=== PATIENT | female | born 1985 | race Asian ===

== ENCOUNTER 2024-08-12 09:51 | Outpatient (AMB) | payer OTHER, SELFPAY ==
--- NOTE | 2024-08-12 09:52 | A.OFFPC_ITS ---
Vital Signs 08/12/24 09:53 Height 5 ft 3.25 in Weight 147 lb 8 oz BMI 25.9 BP 100/70 Blood Pressure Location Lt brachial Position Sitting Pulse 90 Pulse Source Pulse Oximeter Pulse Oximetry (%) 99 Oxygen Delivery Method Room Air Intake Visit Reasons: establish care Head [place] Required: No Accompanied by: Self / Same As Patient Allergies fluoroquinolones Allergy (Severe, Uncoded 08/12/24 10:18) swelling Medication List - Last Reconciled 08/12/24 by Roula Vieira PA-C [multivitamin PO] [Vitamin B12 PO] Tobacco use date assessed: 08/12/24 Dental Screening Dental Screen Date: 08/12/24 Did you have a dental visit in the last 12 months?: No Did you have a dental problem in the last 6 months where you did not have access to dental care?: No Was dental information given to patient?: No HPI establish care HPI Details [age] year old female coming to the office for the 1st time. Patient tells us today she has not been seen in many years. She has previous pregnancies and has had recent pap smear but is likely due for one. She has never completed mammogram. She tells us she has very heavy and painful menses in the first few days of her cycle and has a history of fibroid that was removed. Her menses will typically last 7-10 days and are very regular other than the heavy bleeding. Along with her menses she will occasionally get migraines with her period that are often triggered by dietary changes or lack of sleep. Migraines are typically once per month and accompanied by nausea and vomiting. [facility] Medical History (Updated 08/12/24 @ 10:34 by Roula Vieira PA-C) Uterine fibroid Surgical History (Updated 08/12/24 @ 10:28 by Roula Vieira PA-C) H/O laparoscopy Previous section Family History Other Hypertension Social History Housing: Apartment Patient Tobacco Use Status: Never used Tobacco e-Cigarette/Vaping Use: Never Used Second Hand Smoke Exposure: No service: No Current occupational status: employed Current occupational exposures/hazards: No Cognitive needs: No Hearing needs: No Vision needs: No Female Reproductive History Menstrual control method: none Total pregnancies: 2 Full term: 2 History of abnormal pap smear: No History of abnormal mammogram: No Questionnaire PHQ-9 Over the last 2 weeks, how often have you been bothered by any of the following problems? 1. Little interest or pleasure in doing things: not at all 2. Feeling down, depressed, or hopeless: not at all 3. Trouble falling or staying asleep, or sleeping too much: not at all 4. Feeling tired or having little energy: not at all 5. Poor appetite or overeating: not at all 6. Feeling bad about yourself - or that you are a failure or have let yourself or your family down: not at all 7. Trouble concentrating on things, such as reading the newspaper or watching television: not at all 8. Moving or speaking so slowly that other people could have noticed. Or the opposite - being so fidgety or restless that you have been moving around a lot more than usual: not at all 9. Thoughts that you would be better off or of hurting yourself in some way: not at all Total score: 0 Depression Screening Interpretation: Negative Depression Screening Done: Yes 15563 - PHQ-9 Billing: Yes Source: Developed by Drs. Sukhwinder Harris, Crystal Yeh, Clayton Bustos and colleagues, with an educational cindy from [employer]. Thrive Questionnaire Date Thrive assessed: 08/12/24 I am a: Patient What is your living situation today?: I have a steady place to live Within the past 12 months, did the food you bought not last and you didn't have the money to get more?: I choose not to answer this question Within the past 12 months, did you worry whether your food would run out before you got money to buy more?: Never true Do you have trouble paying for medicines?: No Do you have trouble getting transportation to medical appointments?: No Do you have trouble paying your heating and electricity bill?: No Do you have trouble taking care of your child, family member or friend?: No Do you have trouble with day-to-day activities such as bathing, preparing meals, shopping, managing finances, etc.?: No Are you currently unemployed and looking for a job?: No Are you interested in more education?: No Please select the resources that you would like help with: Utilities Currently or been in a relationship where the following occur: No concerns reported THRIVE Score: 0 AUDIT C Alcohol Use Questionnaire (AUDIT-C) 1. How often do you have a drink containing alcohol?: Monthly or less 2. How many drinks containing alcohol do you have on a typical day when you are drinking?: 1 or 2 3. How often do you have six or more drinks on one occasion?: Never Total Score: 1 SUNNY-7 AMB Questionnaire SUNNY-7 Date SUNNY - 7 assessed: 08/12/24 Feeling nervous, anxious, or on edge: 1 = Several days Not being able to stop or control worryin = Not at all Worrying too much about different things: 0 = Not at all Trouble relaxin = Not at all Being so restless that it is hard to sit still: 0 = Not at all Becoming easily annoyed or irritable: 1 = Several days Feeling afraid as if something awful might happen: 0 = Not at all Total SUNNY-7 score (0-4 normal; 5-9 mild; 10-14 moderate; 15-21 severe): 2 Source: Developed by Drs. Sukhwinder Harris, Crystal Yeh, Clayton Bustos and colleagues, with an educational cindy from [employer]. SUNNY-7 Assessment Billing SUNNY-7 Assessment Tool: SUNNY-7 Assessment 31228 Review of Systems Const Denies body aches, Denies chills, Denies fever(s), Reports headache(s) and Denies poor appetite Eyes Reports no additional complaints ENT Denies dizziness and Reports headache(s) Card Denies chest pain, Denies syncope, Denies edema, Denies irregular heart rhythm, Denies lightheadedness and Denies dyspnea Resp Denies cough and Denies dyspnea GI Denies abdominal pain, Denies constipation, Denies diarrhea, Reports nausea (w/ menses) and Reports vomiting (w/ menses) Details: Heavy, painful menses Musc Reports no additional complaints and Denies abnormal gait Skin/Breast Reports system reviewed and no additional complaints, except as documented Neuro Denies abnormal gait, Denies dizziness, Denies syncope and Reports headache(s) Psych Reports no additional complaints Physical exam (Primary Care) Vital Signs: Last Vital Signs Pulse 90 08/12/24 09:53 BP 100/70 08/12/24 09:53 Pulse Ox 99 08/12/24 09:53 Oxygen Delivery Method Room Air 08/12/24 09:53 BMI result Body Mass Index 25.9 Tobacco/Smoking Status: Tobacco use Status Tobacco use date assessed 08/12/24 08/12/24 09:58 Patient Tobacco Use Status Never used Tobacco 08/12/24 09:58 e-Cigarette/Vaping Use Never Used 08/12/24 09:58 PHQ-9: PHQ-9 Score PHQ-9: Total score 0 08/12/24 10:22 Depression Screening Interpretation: Negative Thrive Assessment: Date of Thrive Assessment Date Thrive assessed 08/12/24 08/12/24 09:58 Currently or been in a relationship where the following occur: No concerns reported Const General: cooperative, healthy appearing, comfortable and no acute distress Orientation/consciousness: patient oriented x3 HENMT Head: Yes normocephalic Ears: hearing grossly normal bilaterally General nose exam: Normal external nose present Eyes General: appearance normal, both eyes and all related structures Conjunctivae: conjunctivae normal Neck Neck: Yes full ROM and Yes no lymphadenopathy Resp Effort & Inspection: normal respiratory effort Auscultation: clear to auscultation bilaterally, no crackles, no rales, no rhonchi and no wheezes Cardio Rate: regular rate Rhythm: regular rhythm Skin General skin exam: no rashes or lesions noted Neuro General: patient oriented x3 Gait exam (Neuro): Normal gait present Extrem General: Yes normal to inspection, Yes full ROM and No edema Psych Affect: normal affect Attitude: cooperative Insight: Good insight present (Psych) Judgement: Good judgement present (Psych) Coding Level of Care Code New Pt Level 4 (37337) Diagnoses Hypercholesterolemia E78.00 Cervical cancer screening Z12.4 Dysmenorrhea N94.6 Menorrhagia N92.0 Vomiting R11.10 Migraine G43.909 Additional Codes SUNNY-7 Assessment Billing - SUNNY-7 Assessment Tool: SUNNY-7 Assessment 35776 ([id number]) PHQ-9 - 80807 - PHQ-9 Billing: Yes ([id number]) Assessment & Plan Assessment & Plan (1) Hypercholesterolemia: Code(s): E78.00 - Pure hypercholesterolemia, unspecified Category: Medical Plan: Patient states she has a history of hypercholesterolemia was never on medical management for this concern. Avoid foods that are high in cholesterol such as red meat, fried foods, eggs and baked goods. Ordered for updated blood work (2) Cervical cancer screening: Code(s): Z12.4 - Encounter for screening for malignant neoplasm of cervix Category: Medical Plan: Referral placed to gynecology for routine Pap smears (3) Dysmenorrhea: Code(s): N94.6 - Dysmenorrhea, unspecified Category: Medical Plan: Patient complaining of extremely painful periods is not looking for hormone replacement therapy at this time. She does have a history of fibroids that were removed prior to . Ordered for pelvic and transvaginal ultrasound for further evaluation. Referral placed to gynecology as well. (4) Menorrhagia: Code(s): N92.0 - Excessive and frequent menstruation with regular cycle Category: Medical Plan: Patient complaining of heavy menses states she occasionally will get lightheaded and dizzy as well. Ordered for iron panel along with additional blood work. Ordered for pelvic and transvaginal ultrasound and referral placed to gynecology (5) Vomiting: Code(s): R11.10 - Vomiting, unspecified Category: Medical Plan: Patient having nausea and vomiting primarily with menses but states occasionally will be precipitated by for mentioned foods or gluten containing foods. Ordered for transglutaminase for further evaluation as well as additional blood work. Given ondansetron for nausea and vomiting. (6) Migraine: Code(s): G43.909 - Migraine, unspecified, not intractable, without status migrainosus Category: Medical Plan: Patient complaining of migraines that happened with menses and can sometimes be triggered by lack of sleep or by dietary changes. She states she can feel the migraines coming on and they happen typically once per month. Given sumatriptan 50 mg for abortive therapy along with Zofran. Plan This note was constructed using voice recognition software. While every effort has been made to ensure accuracy and framing machine tender, still areas may have been included sometimes these areas may affect the content or meeting of the given symptoms. Total time spent caring for the patient today was 30 minutes. This includes time spent before the visit reviewing the chart, time spent during the visit, and time spent after the visit and documentation. Orders: Orders Transglutaminase Ab IgG Today R11.10 - Vomiting, unspecified US pelvic and transvaginal Today N94.6 - Dysmenorrhea, unspecified Comprehensive Met. Panel Today Z00.00 - Encounter for general adult medical examination without abnormal findings Complete Blood Count Auto Diff Today Z00.00 - Encounter for general adult medical examination without abnormal findings Vitamin D 25-OH Total Today Z00.00 - Encounter for general adult medical examination without abnormal findings Vitamin B12 and Folate Today Z00.00 - Encounter for general adult medical examination without abnormal findings UA CC w/rflx Micro + Cult Today R35.89 - Other polyuria MM tomosynthesis screening BI Today Z12.31 - Encounter for screening mammogram for malignant neoplasm of breast IRON PROFILE Today N94.6 - Dysmenorrhea, unspecified Lipid Panel Today E78.00 - Pure hypercholesterolemia, unspecified TSH reflex Free T4 Today Z00.00 - Encounter for general adult medical examination without abnormal findings Free T4 (Free Thyroxine) Today Z00.00 - Encounter for general adult medical examination without abnormal findings Hemoglobin A1c Today Z13.1 - Encounter for screening for diabetes mellitus Referrals [facility] Referral N92.0 - Excessive and frequent menstruation with regular cycle, N94.6 - Dysmenorrhea, unspecified, Z12.4 - Encounter for screening for malignant neoplasm of cervix Medications: New ondansetron 4 mg PO Q8H PRN 20 tabs 0RF nausea and vomiting sumatriptan succinate take 1 tab at onset of headache; if no relief may repeat 1 tab after at least 2 hrs; max = 4 tabs/24 hr PO 20 tabs 2RF N94.6 - Dysmenorrhea, unspecified
[2024-08-12 09:53] VITALS: BP 100/70; PULSE 90; O2SAT 99; BMI 25.9
== END 2024-08-12 10:43 | disposition home or self-care (01) ==
LOC: HO.HMCH 09:51
DX: E78.00 Pure hypercholesterolemia, unspecified (principal); Z12.4 Encounter for screening for malignant neoplasm of cervix; N94.6 Dysmenorrhea, unspecified; N92.0 Excessive and frequent menstruation with regular cycle; R11.10 Vomiting, unspecified; G43.909 Migraine, unspecified, not intractable, without status migrainosus

== ENCOUNTER → 2024-08-12 09:51 | Outpatient (BNVA) | payer OTHER, SELFPAY | DX: E78.00 Pure hypercholesterolemia, unspecified (principal); N94.6 Dysmenorrhea, unspecified; N92.0 Excessive and frequent menstruation with regular cycle; R11.10 Vomiting, unspecified; G43.909 Migraine, unspecified, not intractable, without status migrainosus | CPT/HCPCS: 96127 ==

== ENCOUNTER 2024-08-13 07:50 | Outpatient (REF) | payer OTHER, SELFPAY ==
[2024-08-13 08:06] LABS: MANUAL DIFF FLAG NO
[2024-08-13 09:02] LABS: Basophils Absolute Auto 0.1 X10*3/uL (0.0-0.2); Eosinophils Absolute Auto 0.2 X10*3/uL (0.0-0.4); Eosinophils Percent Auto 2.9 % (0-4); Hematocrit 35.5 % (37.0-47.0); Hemoglobin 11.6 g/dl (12.0-16.0); Imm Gran Abs Auto 0.01 X10*3/uL (0.00-0.03); Imm Gran Pct Auto 0.2 % (0.0-0.4); Lymphocytes Absolute Auto 1.8 X10*3/uL (1.2-4.9); Lymphocytes Percent Auto 30.4 % (20-40); Mean Corpuscular HGB Conc 32.7 g/dl (31.0-35.0); Mean Corpuscular Hemoglobin 27.8 pg (27.0-33.0); Mean Corpuscular Volume 84.9 fL (80.0-98.0); Mean Platelet Volume 8.7 fL (9.4-12.3); Monocytes Absolute Auto 0.5 X10*3/uL (0.1-1.2); Monocytes Percent Auto 7.9 % (2-11); Neutrophils Absolute Auto 3.4 x10*3/uL (2.0-8.3); Neutrophils Percent Auto 57.6 % (45-73); Platelet Count 421 X10*3/uL (160-400); Red Blood Count 4.18 X10*6/uL (4.20-5.50); Red Cell Distribution Width 13.2 % (11.0-16.0)
[2024-08-13 09:13] LABS: Estimated Average Glucose 108 mg/dL; Hemoglobin A1C 111.8864 umol/L; Hemoglobin A1c % 5.4 % (<6.0); Total Hemoglobin (HGBA1C) 3111.1834 umol/L
[2024-08-13 09:20] LABS: Appearance Urine Hazy; Color Urine Yellow; Glucose Urine UA Negative (Negative); Leukocyte Esterase Urine Negative (Negative); Nitrite Urine Negative (Negative); Specific Gravity - Urine >= 1.030 (1.005-1.025); UMIC TRIGGER UACC YES; Urine Blood Moderate (2+) (Negative); Urine Ketones Negative (Negative); Urine Protein Negative (Neg-Trace)
[2024-08-13 09:34] LABS: Bacteria Urine 2+ (None Seen); Hyaline Casts Urine 0-2 /LPF (0-2); WBC Urine 0-5 /HPF (0-5)
[2024-08-13 09:35] LABS: Alanine Aminotransferase 20 U/L (0-31); Albumin Level 4.2 g/dL (3.5-5.0); Alkaline Phosphatase 60 U/L (39-117); Anion Gap 11 (12-20); Aspartate Amino Transferase 23 U/L (5-31); Bilirubin Total 0.7 mg/dL (0.0-1.0); Blood Urea Nitrogen 11 mg/dL (9-16); Carbon Dioxide 23 mmol/L (22-29); Chloride 109 mmol/L (96-108); Cholesterol 211 mg/dL (<200); Estimated Glomerular Filt Rate > 60; Glucose Random 84 mg/dL (60-115); HDL Cholesterol 49 mg/dL (>40); Iron 113 mcg/dL (30-160); LDL Cholesterol Calculated 135 mg/dL (<100); Percent Iron Saturation 33 % (15-50); Potassium 4.2 mmol/L (3.3-5.1); Sodium 139 mmol/L (135-145); Total Iron Binding Capacity 344 mcg/dL (228-428); Total Protein 7.8 g/dL (6.5-8.0); Triglycerides 139 mg/dL (<150); Unsaturated Iron Binding 231 ug/dL
[2024-08-13 09:53] LABS: Free T4 (Free Thyroxine) 0.88 ng/dL (0.71-1.85); TSH reflex Free T4 3.35 uIU/mL (0.32-4.0); Vitamin D 25-OH Total 20.3 ng/mL (>30)
[2024-08-13 10:06] LABS: Folate 10.5 ng/mL (> or = 4.0); Vitamin B12 1931 pg/mL (200-900)
[2024-08-14 16:09] LABS: Transglutaminase Ab IgG <1.0 U/mL
== END 2024-08-13 07:51 | disposition home or self-care (01) ==
LOC: HO.LAB 07:50
DX: Z00.00 Encounter for general adult medical examination without abnormal findings (principal); R11.10 Vomiting, unspecified; N94.6 Dysmenorrhea, unspecified; E78.00 Pure hypercholesterolemia, unspecified; Z13.1 Encounter for screening for diabetes mellitus
CPT/HCPCS: 36415; 80053; 80061; 81001; 82306; 82607; 82746; 83036; 83540; 84439; 84443; 85025; 86364

== ENCOUNTER 2024-08-20 15:54 | Outpatient (REF) | payer OTHER, SELFPAY ==
--- NOTE | ~2024-08-20 | US_ITS ---
EXAMINATION: US PELVIS TRANSABDOMINAL AND TRANSVAGINAL HISTORY: N94.6 - Dysmenorrhea, unspecified COMPARISON: There are no prior studies for comparison. TECHNIQUE: Transabdominal and endovaginal real-time 2D carpenter-scale ultrasound was performed. Color Doppler was also performed. FINDINGS: Uterus: The uterus is normal in size, measuring 9.1 x 4.6 x 5.5 cm. Myometrium has a normal echotexture. No fibroids are identified. Endometrium: The endometrial stripe measures 10 mm in thickness. Right ovary: The right ovary measures 3.0 x 2.4 x 3.1 cm. There is a 1.5 x 1.6 x 1.5 cm hypoechoic structure with internal echoes within the right ovary which may represent an involuting corpus luteum or hemorrhagic cyst. Left ovary: The left ovary measures 1.6 x 1.1 x 1.2 cm. The left ovary is normal in size and echotexture. Color Doppler analysis of the bilateral ovarian arteries and veins are normal. Pelvic fluid: none. US/US pelvic and transvaginal IMPRESSION: 1.5 x 1.6 x 1.5 cm probable right ovarian hemorrhagic cyst versus involuting corpus luteum. A follow-up examination in 6 weeks, and a different time in the patient's menstrual cycle, is recommended to document resolution. Electronically signed by: Sukhwinder Feng MD 08/21/2024 07:07 AM [facility]
== END 2024-08-20 15:55 | disposition home or self-care (01) ==
LOC: HO.US 15:54
DX: N94.6 Dysmenorrhea, unspecified (principal)
CPT/HCPCS: 76830; 76856

== ENCOUNTER → 2024-08-20 15:57 | Outpatient (BNV) | payer OTHER, SELFPAY | PROVIDERS: Visit Provider Radiology Diagnostic Radiology | DX: N83.11 Corpus luteum cyst of right ovary (principal) | CPT/HCPCS: 76830; 76856 ==

== ENCOUNTER 2024-08-25 13:38 | Outpatient (REF) | payer OTHER, SELFPAY | END 2024-08-25 13:39 | disposition home or self-care (01) | LOC: HO.MAMMO 13:38 | DX: Z12.31 Encounter for screening mammogram for malignant neoplasm of breast (principal) | CPT/HCPCS: 77063; 77067 ==

== ENCOUNTER → 2024-08-25 13:45 | Outpatient (BNV) | payer OTHER, SELFPAY | PROVIDERS: Visit Provider Internal Medicine | DX: Z12.31 Encounter for screening mammogram for malignant neoplasm of breast (principal) | CPT/HCPCS: 77063; 77067 ==

== ENCOUNTER 2024-08-27 12:14 | Outpatient (REF) | payer OTHER, SELFPAY ==
--- NOTE | ~2024-08-27 | US_ITS ---
CLINICAL HISTORY: R31.9 - Hematuria, unspecified US Renal Comparison: None Findings: Right kidney normal size and echotexture, 12 cm length. Left kidney normal size and echotexture, 11.1 cm length. No hydronephrosis. Questionable 5 mm left renal cyst with focal reverberation artifact not requiring further follow-up/workup. IMPRESSION: No hydronephrosis. This document has been electronically signed by: Liz Menard MD on 08/28/2024 09:47:28
== END 2024-08-27 12:15 | disposition home or self-care (01) ==
LOC: HO.US 12:14
DX: R31.9 Hematuria, unspecified (principal)
CPT/HCPCS: 76775

== ENCOUNTER → 2024-08-27 12:17 | Outpatient (BNV) | payer OTHER, SELFPAY | PROVIDERS: Visit Provider Radiology Diagnostic Radiology | DX: N28.1 Cyst of kidney, acquired (principal) | CPT/HCPCS: 76775 ==

== ENCOUNTER 2024-10-01 14:55 | Outpatient (REF) | payer OTHER, SELFPAY ==
--- NOTE | ~2024-10-01 | US_ITS ---
EXAMINATION: US PELVIS TRANSABDOMINAL AND TRANSVAGINAL HISTORY: N92.0 - Excessive and frequent menstruation with regular cycle COMPARISON: Comparison is made with the prior examination dated 08/20/2024. TECHNIQUE: Transabdominal and endovaginal real-time 2D carpenter-scale ultrasound was performed. Color Doppler was also performed. FINDINGS: Uterus: The uterus is normal in size, measuring 8.1 x 4.6 x 5.4 cm. Myometrium has a normal echotexture. No fibroids are identified. Endometrium: The endometrial stripe measures 8 mm in thickness. Right ovary: The right ovary measures 3.0 x 1.6 x 2.0 cm. The right ovary is normal in size and echotexture. The previously seen 1.6 cm involuting corpus luteum versus hemorrhagic cyst has resolved. Left ovary: The left ovary measures 2.4 x 3.2 x 1.5 cm. The left ovary is normal in size and echotexture. There is an 11 mm follicle. Color Doppler analysis of the bilateral ovarian arteries and veins are normal. Pelvic fluid: none. US/US pelvic and transvaginal IMPRESSION: Unremarkable pelvic ultrasound. The previously seen involuting corpus luteum versus hemorrhagic cyst has resolved. Electronically signed by: Sukhwinder Feng MD 10/01/2024 03:49 PM [facility]
== END 2024-10-01 14:56 | disposition home or self-care (01) ==
LOC: HO.US 14:55
DX: N92.0 Excessive and frequent menstruation with regular cycle (principal)
CPT/HCPCS: 76830; 76856

== ENCOUNTER → 2024-10-01 14:57 | Outpatient (BNV) | payer OTHER, SELFPAY | PROVIDERS: Visit Provider Radiology Diagnostic Radiology | DX: N83.291 Other ovarian cyst, right side (principal); N83.11 Corpus luteum cyst of right ovary | CPT/HCPCS: 76830; 76856 ==

== ENCOUNTER 2024-10-20 15:54 | Outpatient (AMB) | payer OTHER, SELFPAY ==
[2024-10-20 16:05] VITALS: BP 112/68; PULSE 90; TEMP 36.1; O2SAT 99; BMI 27.0
--- NOTE | 2024-10-20 16:05 | MHC.PC.OV ---
Vital Signs 10/20/24 16:05 Height 5 ft 3.25 in Weight 153 lb 8 oz BMI 27.0 BP 112/68 Blood Pressure Location Lt brachial Position Sitting Pulse 90 Pulse Source Pulse Oximeter Temp 96.9 F Temp Source Temporal Artery Scan Pulse Oximetry (%) 99 Oxygen Delivery Method Room Air Intake Visit Reasons: annual exam Intake Note: Patient is here today for a physical. Diesel Trailer Mechanic Required: No Barker Operator: Not Required per policy Accompanied by: Self / Same As Patient Allergies fluoroquinolones Allergy (Severe, Uncoded 10/20/24 16:12) swelling Medication List - Last Reconciled 10/20/24 by Roula Vieira PA-C [multivitamin PO] ondansetron 4 mg PO Q8H PRN sumatriptan succinate take 1 tab at onset of headache; if no relief may repeat 1 tab after at least 2 hrs; max = 4 tabs/24 hr PO [Vitamin B12 PO] Tobacco use date assessed: 10/20/24 Dental Screening Dental Screen Date: 08/12/24 HPI annual exam HPI Details 39-year-old female with past medical history of migraines, dysmenorrhea, hypercholesterolemia last seen 08/2024 coming in for annual exam. In review of the notes, patient had pelvic and transvaginal ultrasound completed 09/2024 showing previous hemorrhagic cysts resolves otherwise normal. Patient also had renal ultrasound completed 4 hematuria which showed no hydronephrosis and questionable left renal cyst not requiring further follow up. Patient has follow up with gynecology coming up in December. Presenting with an annual examination and follow-up on resolved cyst and current health concerns. Menstrual cycles include migraines and nausea leading to vomiting, managed with sumatriptan. Concerns of acne flares related to menstrual cycles. Familial early menopause experience raised concerns and was discussed. Mammogram: Completed 08/2024 Pap smear: Appointment with gynecology 12/2024 Vaccines: unsure of vaccinations PFSH Medical History Uterine fibroid Surgical History H/O laparoscopy Previous section Family History Other Hypertension Social History (Reviewed 10/20/24 @ 16:40 by JOSEPH Bolaños Housing: Apartment Patient Tobacco Use Status: Never used Tobacco e-Cigarette/Vaping Use: Never Used Second Hand Smoke Exposure: No service: No Current occupational status: employed Current occupational exposures/hazards: No Cognitive needs: No Hearing needs: No Vision needs: No Female Reproductive History Menstrual control method: none Questionnaire PHQ-9 Over the last 2 weeks, how often have you been bothered by any of the following problems? 1. Little interest or pleasure in doing things: not at all 2. Feeling down, depressed, or hopeless: not at all 3. Trouble falling or staying asleep, or sleeping too much: not at all 4. Feeling tired or having little energy: not at all 5. Poor appetite or overeating: not at all 6. Feeling bad about yourself - or that you are a failure or have let yourself or your family down: not at all 7. Trouble concentrating on things, such as reading the newspaper or watching television: not at all 8. Moving or speaking so slowly that other people could have noticed. Or the opposite - being so fidgety or restless that you have been moving around a lot more than usual: not at all 9. Thoughts that you would be better off or of hurting yourself in some way: not at all Total score: 0 Depression Screening Interpretation: Negative Depression Screening Done: Yes Source: Developed by Drs. Sukhwinder Harris, Crystal Yeh, Clayton Bustos and colleagues, with an educational cindy from [employer]. Thrive Questionnaire Date Thrive assessed: 10/20/24 I am a: Patient What is your living situation today?: I have a steady place to live Within the past 12 months, did the food you bought not last and you didn't have the money to get more?: I choose not to answer this question Within the past 12 months, did you worry whether your food would run out before you got money to buy more?: Never true Do you have trouble paying for medicines?: No Do you have trouble getting transportation to medical appointments?: No Do you have trouble paying your heating and electricity bill?: No Do you have trouble taking care of your child, family member or friend?: No Do you have trouble with day-to-day activities such as bathing, preparing meals, shopping, managing finances, etc.?: No Are you currently unemployed and looking for a job?: No Are you interested in more education?: No Please select the resources that you would like help with: Utilities Currently or been in a relationship where the following occur: No concerns reported THRIVE Score: 0 SUNNY-7 AMB Questionnaire SUNNY-7 Date SUNNY - 7 assessed: 08/12/24 Source: Developed by Drs. Sukhwinder Harris, Crystal Yeh, Clayton Bustos and colleagues, with an educational cindy from [employer]. Review of Systems Const Denies body aches, Denies chills, Denies fever(s), Reports headache(s) and Denies poor appetite Eyes Reports no additional complaints ENT Denies dysphagia, Denies dizziness, Reports headache(s) and Denies odynophagia Card Denies chest pain, Denies syncope, Denies edema, Denies irregular heart rhythm, Denies lightheadedness and Denies dyspnea Resp Denies cough and Denies dyspnea GI Details: nausea and vomiting around menses only Denies abdominal pain, Denies constipation, Denies dysphagia, Denies diarrhea and Denies odynophagia Reports no additional complaints Musc Reports no additional complaints and Denies abnormal gait Skin/Breast Reports system reviewed and no additional complaints, except as documented Neuro Denies abnormal gait, Denies dizziness, Denies syncope and Reports headache(s) Psych Reports no additional complaints Physical exam (Primary Care) Vital Signs: Last Vital Signs Temp 96.9 F 10/20/24 16:05 Pulse 90 10/20/24 16:05 BP 112/68 10/20/24 16:05 Pulse Ox 99 10/20/24 16:05 Oxygen Delivery Method Room Air 10/20/24 16:05 BMI result Body Mass Index 27.0 Tobacco/Smoking Status: Tobacco use Status Tobacco use date assessed 10/20/24 10/20/24 16:10 Patient Tobacco Use Status Never used Tobacco 10/20/24 16:10 e-Cigarette/Vaping Use Never Used 10/20/24 16:10 PHQ-9: PHQ-9 Score PHQ-9: Total score 0 10/20/24 16:10 Depression Screening Interpretation: Negative Thrive Assessment: Date of Thrive Assessment Date Thrive assessed 10/20/24 10/20/24 16:10 Currently or been in a relationship where the following occur: No concerns reported Const General: cooperative, healthy appearing, comfortable and no acute distress Orientation/consciousness: patient oriented x3 [facility] Head: Yes normocephalic Ears: hearing grossly normal bilaterally, external ears normal, TM's normal bilaterally and EAC's normal General nose exam: Normal external nose present Face and sinus: Yes normal facial exam and Yes sinuses nontender Mouth: Normal oral and palatal mucosa present and tongue normal Throat: Yes posterior oropharynx normal Eyes General: appearance normal, both eyes and all related structures Conjunctivae: conjunctivae normal Pupils: Equal, round and reactive pupils present EOM: EOMs intact bilaterally and No Nystagmus present Neck Neck: Yes normal visual inspection, Yes full ROM and Yes no lymphadenopathy Chest Chest palpation & inspection: normal inspection of the chest Resp Effort & Inspection: normal respiratory effort Auscultation: clear to auscultation bilaterally, no crackles, no rales, no rhonchi, no wheezes and breath sounds present Cardio Rate: regular rate Rhythm: regular rhythm Peripheral pulses: radial pulses present and dorsalis pedis present GI Inspection: Yes normal to inspection and No Abdominal wall edema Palpation (GI): Soft to palpation, not firm and nontender Auscultation: normal bowel sounds Rectal Exam - Female: deferred General: Yes no CVA tenderness Back/Spine/Pelvis Back: no CVA tenderness Skin General skin exam: no rashes or lesions noted Neuro General: patient oriented x3 Cranial nerves: Yes Equal, round and reactive pupils present, Yes Midline tongue present, Yes Ability to bilaterally elevate shoulders present and No Nystagmus present Gait exam (Neuro): Normal gait present Extrem General: Yes normal to inspection, Yes full ROM, No no pedal edema and No edema Psych Speech and movement: Normal speech and movement present Affect: normal affect Insight: Good insight present (Psych) Judgement: Good judgement present (Psych) Coding Level of Care Code Est Pt Prev Care 40-64y(38522) Diagnoses Migraine G43.909 Menorrhagia N92.0 Dysmenorrhea N94.6 Hypercholesterolemia E78.00 Cervical cancer screening Z12.4 Annual physical exam Z00.00 Assessment & Plan Assessment & Plan (1) Migraine: Code(s): G43.909 - Migraine, unspecified, not intractable, without status migrainosus Category: Medical Plan: The patient's migraines, linked to menstrual cycles, are adequately managed with sumatriptan, with a refill offered for associated nausea. (2) Menorrhagia: Code(s): N92.0 - Excessive and frequent menstruation with regular cycle Category: Medical Plan: Appointment with gynecology coming up in December continue to follow up with the going forward. (3) Dysmenorrhea: Code(s): N94.6 - Dysmenorrhea, unspecified Category: Medical Plan: Appointment with gynecology coming up in December continue to follow up with the going forward. (4) Hypercholesterolemia: Code(s): E78.00 - Pure hypercholesterolemia, unspecified Category: Medical Plan: Avoid foods that are high in cholesterol such as red meat, fried foods, eggs and baked goods. Triglyceride goal of less than 150 and LDL goal of less than 130. Discussed dietary modification and lifestyle modification. (5) Cervical cancer screening: Code(s): Z12.4 - Encounter for screening for malignant neoplasm of cervix Category: Medical Plan: Referral placed to gynecology (6) Annual physical exam: Code(s): Z00.00 - Encounter for general adult medical examination without abnormal findings Category: Medical Plan: Patient is not up-to-date on Pap smear but did complete her mammogram in August of this year. Blood work is up-to-date and has been reviewed with the patient today. She is unsure vaccination status at this time and we will look into her record. Plan to follow up in 1 year or sooner if new problems arise. Plan This note was constructed using voice recognition software. While every effort has been made to ensure accuracy and bill board poster, still areas may have been included sometimes these areas may affect the content or meeting of the given symptoms. Total time spent caring for the patient today was 30 minutes. This includes time spent before the visit reviewing the chart, time spent during the visit, and time spent after the visit and documentation. Patient was informed and verbally consented to the use of an ambient scribe for clinic note documentation during this visit. Medications: Refilled ondansetron 4 mg PO Q8H PRN 20 tabs 2RF nausea and vomiting
== END 2024-10-20 16:33 | disposition home or self-care (01) ==
LOC: HO.HMCH 15:55
DX: G43.909 Migraine, unspecified, not intractable, without status migrainosus (principal); N92.0 Excessive and frequent menstruation with regular cycle; N94.6 Dysmenorrhea, unspecified; E78.00 Pure hypercholesterolemia, unspecified; Z12.4 Encounter for screening for malignant neoplasm of cervix; Z00.00 Encounter for general adult medical examination without abnormal findings

== ENCOUNTER 2024-12-09 11:44 | Outpatient (AMB) | payer OTHER, SELFPAY ==
[2024-12-09 11:49] VITALS: BP 104/68; BMI 26.8
--- NOTE | 2024-12-09 11:49 | A.OFFVIS_ITS ---
Vital Signs 12/09/24 11:49 Height 5 ft 3.5 in Weight 154 lb BMI 26.8 BP 104/68 Blood Pressure Location Lt brachial Intake Visit Reasons: Dysmenorrhea Rn Production Required: No Allergies fluoroquinolones Allergy (Severe, Uncoded 12/09/24 11:54) swelling Medication List - Last Reconciled 12/09/24 by Yoli Sheth, BURR BENCH OPERATOR [multivitamin PO] ondansetron 4 mg PO Q8H PRN sumatriptan succinate take 1 tab at onset of headache; if no relief may repeat 1 tab after at least 2 hrs; max = 4 tabs/24 hr PO Is last menstrual period known: Yes Last menstrual period: 11/13/24 Post menopausal: No Patient : No Do you need a note to return to daycare/school/sports/work: No HPI Comments Details: Patient arrived today for a new patient consult due to history of dysmenorrhea, also reporting some frequency of urination, some suprapubic pain over the weekend, w/burning externally near labias. She is uncertain if she was experiencing premenstrual cramping as well, cycle due in 1-2d. Menses are regular lasting 9-10 days, heavy and painful for 3d. Always had heavy menses since menarche age 11. Midol is helpful. Additional concerns for hair thinning and loss. Vit D level-20.3, not on a supplement. History of infertility resolved with myomectomy, history of C/s. History of migraines around her cycle w/out aura. 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 Current occupational exposures/hazards: No Cognitive needs: No Hearing needs: No Vision needs: No Female Reproductive History Menstrual Age of Menarche: 11 Duration of menses: 8-10 days Date of last menstrual period: 11/13/24 control method: none Total pregnancies: 2 Full term: 0 Premature: 2 Number of Living Children: 2 Ab induced: 0 Ab spontaneous: 0 Ectopics: 0 Multiple births: 0 Date of last pap smear: 09/25/21 History of abnormal pap smear: No History of STI: No Date of Mammogram: 08/25/24 History of abnormal mammogram: No Review of Systems Const All systems reviewed & are unremarkable except as noted in HPI and below Physical Exam Vital Signs: Last Vital Signs BP 104/68 12/09/24 11:49 BMI result Body Mass Index 26.8 Const General: cooperative, healthy appearing and no acute distress Orientation/consciousness: patient oriented x3 GI Inspection: Yes normal to inspection and Yes scar Palpation (GI): Soft to palpation and Other GI palpation findings present (Nontender) Rectal Exam - Female: visual inspection normal General: Yes bladder normal to palpation External Female Exam: normal appearance of the urethra Speculum Exam - Vagina: normal appearance of the vagina, normal palpation, normal vaginal discharge and vaginal bleeding Speculum Exam - Cervix: normal appearance of the cervix, normal palpation and Cervical mass present (1 cm polyp) pedunculated Bimanual exam- vagina & uterus: normal bimanual exam, normal palpation, uterine size normal, bladder normal to palpation, normal palpation, uterine shape normal and non-tender Bimanual Exam- Adnexa, other: normal adnexae OB/external & speculum: vaginal bleeding Neuro General: patient oriented x3 Results AMB Test Urine AMB Test Urine Negative Last Edit by Yoli Sheth LPN on 0 12/09/24 12:07 AMB Urinalysis, Automated UA Leukoctes 0.5 Misty/uL Last Edit by JAYSHREE Peralta on 12/09/24 13:0 0 UA Nitrite Negative Last Edit by JAYSHREE Peralta on 12/09/24 13:00 UA Urobilinogen 0 mg/dL Last Edit by JAYSHREE Peralta on 12/09/24 13:0 0 UA Protein 0 mg/dL Last Edit by Breanna Hurtado, A on 12/09/24 13:00 UA pH 6.0 Last Edit by Breanna Hurtado A on 12/09/24 13:00 UA Blood 3 Usman/uL Last Edit by Breanna Hurtado A on 12/09/24 13:00 UA Specific Shell 1.015 Last Edit by Breanna Hurtado A on 12/09/24 13:00 UA Ketone Negative Last Edit by Breanna Hurtado A on 12/09/24 13:00 UA Bilirubin 0 mg/dL Last Edit by Breanna Hurtado A on 12/09/24 13:00 UA Glucose 0 mg/dL Last Edit by Breanna Hurtado A on 12/09/24 13:00 Results Reviewed Results Reviewed: Laboratory Last Values Tst Clinic Negative 12/09/24 12:06 Assessment & Plan Assessment & Plan (1) Dysmenorrhea: Code(s): N94.6 - Dysmenorrhea, unspecified Category: Medical Plan: Continue with [facility] for now follow up at polypectomy appointment. (2) Cervical cancer screening: Code(s): Z12.4 - Encounter for screening for malignant neoplasm of cervix Category: Medical Plan: Pap smear obtained, await results for further plan of care. (3) Cervical polyp: Code(s): N84.1 - Polyp of cervix uteri Category: Medical Plan: Counseled regarding cervical polyp recommended removal. Advised to schedule ap pointment. The patient expressed understanding and agreement with the plan of care. All of her questions and concerns were addressed to the best of my ability. (4) Hair loss: Code(s): L65.9 - Nonscarring hair loss, unspecified Category: Medical Plan: Discussed vitamin-D level and recommended supplementation. Correlation with low vitamin-D level and hair thinning and loss. (5) Abnormal uterine bleeding (AUB): Code(s): N93.9 - Abnormal uterine and vaginal bleeding, unspecified Category: Medical Plan: Reviewed ultrasound findings. Recommend polypectomy, then observe for bleeding pattern, consider other options discussion at her follow up. (6) Frequency of urination: Code(s): R35.0 - Frequency of micturition Category: Medical Plan: Urine dip-3+ blood with trace leukocytes, maybe vaginal contamination, UA clean- catch to be sent. (7) Dysuria: Code(s): R30.0 - Dysuria Category: Medical Plan Continue with hydrating well. Await results for plan of care. The patient expressed understanding and agreement with the plan of care. All of her questions and concerns were addressed to the best of my ability. Total time I personally spent on visit and management today: ?40 minutes. Time spent included review of pertinent office notes in the electronic health record; review of laboratory and imaging results; review of personal family medical history; performing physical exam; discussing diagnosis and plan of care with the patient; documenting the encounter in the EMR. This note is constructed using voice recognition software. While every effort has been made to ensure accuracy, services program manager errors may have been included. Orders: Orders AMB HCG Urine Test Today Z32.02 - Encounter for test, result negative CT NG by PCR Today N94.6 - Dysmenorrhea, unspecified AMB Urinalysis Automated Today R30.0 - Dysuria Bacterial Vaginosis Panel Today N94.6 - Dysmenorrhea, unspecified Pap Smear Today N93.9 - Abnormal uterine and vaginal bleeding, unspecified Urine Culture Today R30.0 - Dysuria Coding Level of Care Code New Pt Level 4 (37825) Diagnoses Dysmenorrhea N94.6 Cervical cancer screening Z12.4 Cervical polyp N84.1 Hair loss L65.9 Abnormal uterine bleeding (AUB) N93.9 Frequency of urination R35.0 Dysuria R30.0
== END 2024-12-09 13:51 | disposition home or self-care (01) ==
LOC: HO.HWS 11:44
PROVIDERS: Visit Provider Advanced Practice Midwife
DX: N94.6 Dysmenorrhea, unspecified (principal); Z12.4 Encounter for screening for malignant neoplasm of cervix; N84.1 Polyp of cervix uteri; L65.9 Nonscarring hair loss, unspecified; N93.9 Abnormal uterine and vaginal bleeding, unspecified; R35.0 Frequency of micturition; R30.0 Dysuria; Z32.02 Encounter for pregnancy test, result negative
CPT/HCPCS: 99204

== ENCOUNTER 2024-12-09 11:44 | Outpatient (REF) | payer OTHER, SELFPAY ==
[2024-12-09 16:42] LABS: Bacterial Vaginosis PCR NEGATIVE (Negative); Candida Group PCR NOT DETECTED (Not Detect); Candida glab krusei PCR NOT DETECTED (Not Detect); Trichomonas vaginalis PCR NOT DETECTED (Not Detect)
[2024-12-09 17:15] LABS: CT PCR NOT DETECTED (Not Detect.); NG PCR NOT DETECTED (Not Detect.)
[2024-12-16 10:20] LABS: HPV Genotype 16 Negative (Negative); HPV Genotype 18 Negative (Negative); HPV High Risk Negative (Negative)
== END 2024-12-09 11:45 | disposition home or self-care (01) ==
LOC: HO.LNP 11:44
PROVIDERS: Visit Provider Advanced Practice Midwife
DX: N94.6 Dysmenorrhea, unspecified (principal); R30.0 Dysuria; N93.9 Abnormal uterine and vaginal bleeding, unspecified
CPT/HCPCS: 81003; 81025; 81515; 87086; 87088; 87186; 87491; 87591; 87626; 88175

== ENCOUNTER 2024-12-09 12:55 | Outpatient (REF) | payer OTHER, SELFPAY | END 2024-12-09 12:56 | disposition home or self-care (01) | LOC: HO.LAB 12:55 | PROVIDERS: Visit Provider Advanced Practice Midwife | DX: Z13.89 Encounter for screening for other disorder (principal) ==

== ENCOUNTER 2024-12-24 12:56 | Outpatient (REF) | payer OTHER, SELFPAY | END 2024-12-24 12:57 | disposition home or self-care (01) | LOC: HO.LNP 12:56 | PROVIDERS: Visit Provider Advanced Practice Midwife | DX: N84.1 Polyp of cervix uteri (principal) | CPT/HCPCS: 57500; 88305 ==

== ENCOUNTER 2024-12-24 12:56 | Outpatient (AMB) | payer OTHER, SELFPAY ==
--- NOTE | 2024-12-24 12:57 | A.OFFVIS_ITS ---
Vital Signs 12/24/24 13:03 Height 5 ft 3.5 in Weight 154 lb 6 oz BMI 26.9 BP 122/64 Blood Pressure Location Lt brachial Position Sitting Intake Visit Reasons: polypectomy Credit Card Control Clerk Required: No Allergies fluoroquinolones Allergy (Severe, Uncoded 12/24/24 13:06) swelling Medication List - Last Reconciled 12/24/24 by Yoli Sheth, DROP FORGE OPERATOR [multivitamin PO] ondansetron 4 mg PO Q8H PRN sumatriptan succinate take 1 tab at onset of headache; if no relief may repeat 1 tab after at least 2 hrs; max = 4 tabs/24 hr PO Is last menstrual period known: Yes Last menstrual period: 12/09/24 Post menopausal: No Patient : No Do you need a note to return to daycare/school/sports/work: No HPI Comments Details: Patient presents today for cervical polyp removal. Recent menses x5d, then brown mucus 5 days later for a few hours. No postcoital bleeding. History of infertility prior to myomectomy, she reports her cycles have always been 9-10 days in length including spotting. She has never taken control in the past. 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 Current occupational exposures/hazards: No Cognitive needs: No Hearing needs: No Vision needs: No Female Reproductive History Menstrual Age of Menarche: 11 Duration of menses: 3-5 days Date of last menstrual period: 12/09/24 control method: none Total pregnancies: 2 Premature: 2 Number of Living Children: 2 Date of last pap smear: 12/09/24 History of abnormal pap smear: No History of STI: No Date of Mammogram: 08/25/24 History of abnormal mammogram: No Review of Systems Const All systems reviewed & are unremarkable except as noted in HPI and below Physical Exam Vital Signs: Last Vital Signs BP 122/64 12/24/24 13:03 BMI result Body Mass Index 26.9 Const General: cooperative, healthy appearing and no acute distress Orientation/consciousness: patient oriented x3 GI Inspection: Yes normal to inspection Palpation (GI): Soft to palpation and Other GI palpation findings present (Nontender) Rectal Exam - Female: visual inspection normal General: Yes bladder normal to palpation External Female Exam: normal appearance of the urethra Speculum Exam - Vagina: normal appearance of the vagina, normal palpation and normal vaginal discharge Speculum Exam - Cervix: normal appearance of the cervix, normal palpation and Cervical mass present (Small flat polyp) Bimanual exam- vagina & uterus: normal bimanual exam, normal palpation, uterine size normal, bladder normal to palpation, normal palpation, uterine shape normal and non-tender Bimanual Exam- Adnexa, other: normal adnexae Neuro General: patient oriented x3 Office Procedures Cervical Polypectomy Details Details: Consent for Cervical Polypectomy procedure: The patient is here today for an Cervical Polypectomy. She was counseled regarding anticipatory guidance for the procedure including the risks for pain, infection, bleeding, perforation, potential injury to the tissues may include the cervix, vagina, uterus, tubes, bladder and bowels. These injuries may include further treatment and evaluation including surgery, blood transfusions, antibiotics, hospitalizations and anesthesia. Permanent injury and scarring can occur. She was consented for the procedure, and the consent forms were signed. She is agreeable to have the procedure today. All questions were answered. Polypectomy Procedure: The patient was placed in the dorsal lithotomy position and a sterile speculum inserted. Using aseptic technique for the procedure. The cervix was cleansed with Betadine x 3 swabs. The polyp was grasped with a [place] and removed. The tissue sample was placed in formalin in a patient labeled container by staff assisting and sent to the pathology department for processing and interpretation. Minimal bleeding was observed.The patient tolerate the procedure well and was in good condition when leaving the department. Post Polypectomy Care: There may be some bleeding for several days that is usually light and can turn to a light brown or pink in color. Mild cramping may occur. Nothing in the vagina including: tampons, douching or intimacy for a week. You may take an over the counter mild analgesia like Tylenol or Advil (if no allergies), per the manufacturers recommendations on dosing and frequency. Follow the directions completely. Call the office if any: fever (over 100.4), flu like symptoms, abdominal pain, worsening cramping not resolved with over the counter medications, foul smelling vaginal odor, signs of infected appearing discharge, or heavy bleeding. A follow up call for results on the pathology will be made. Please call the office if you have any concerns. This note is constructed using voice recognition software. While every effort has been made to ensure accuracy, barrel rib matting machine operator errors may have been included. CPT: 74544 - Cervical Polypectomy All charges added?: Procedure code (CPT) selection complete Assessment & Plan Assessment & Plan (1) Cervical polyp: Comment: Removed 12/24/2024 Code(s): N84.1 - Polyp of cervix uteri Category: Medical (2) Abnormal uterine bleeding (AUB): Code(s): N93.9 - Abnormal uterine and vaginal bleeding, unspecified Category: Medical Plan: Counseled regarding AUB. Treatment options including Mirena IUD. Endometrial biopsy procedure reviewed. Mirena booklet given. Patient will observe for bleeding pattern and report any abnormal bleeding, if decides to have the Mirena IUD we will schedule her appointment and plan the biopsy of the same-day visit. Monitor menstrual cycles, report any unscheduled bleeding, bleeding episodes <24 days apart or heavy/prolonged menstrual bleeding. Call the office for a follow up for any concerns. The patient expressed understanding and agreement with the plan of care. All of her questions and concerns were addressed to the best of my ability. This note is constructed using voice recognition software. While every effort has been made to ensure accuracy, barrel rib matting machine operator errors may have been included. Plan See procedure note. Orders: Orders Surgical Today N84.1 - Polyp of cervix uteri Coding Level of Care Code Procedure Only Diagnoses Cervical polyp N84.1 Abnormal uterine bleeding (AUB) N93.9 CPT Codes Details - CPT: 45381 - Cervical Polypectomy ([id number])
[2024-12-24 13:03] VITALS: BP 122/64; BMI 26.9
== END 2024-12-24 14:45 | disposition home or self-care (01) ==
LOC: HO.HWS 12:56
PROVIDERS: Visit Provider Advanced Practice Midwife
DX: N84.1 Polyp of cervix uteri (principal); N93.9 Abnormal uterine and vaginal bleeding, unspecified
CPT/HCPCS: 57500